=== PATIENT | female | born 1945 | race Caucasian/White ===

== ENCOUNTER 2019-05-10 10:04 | Emergency (ER) | payer MEDICARE | END 2019-05-10 11:16 | disposition home or self-care (01) | LOC: EDH 10:04 | DX: S43.492A Other sprain of left shoulder joint, initial encounter (principal); I10 Essential (primary) hypertension; E78.00 Pure hypercholesterolemia, unspecified; M81.0 Age-related osteoporosis without current pathological fracture; M19.90 Unspecified osteoarthritis, unspecified site; Z98.890 Other specified postprocedural states; X58.XXXA Exposure to other specified factors, initial encounter; Y93.89 Activity, other specified; Y92.098 Other place in other non-institutional residence as the place of occurrence of the external cause; Y99.8 Other external cause status | CPT/HCPCS: 73030 ==

== ENCOUNTER → 2021-07-01 | Outpatient (CLI) | payer MEDICARE | END | disposition home or self-care (01) | LOC: RAH 09:29 | PROVIDERS: ATTEND Internal Medicine Critical Care Medicine | DX: M47.27 Other spondylosis with radiculopathy, lumbosacral region (principal); M48.061 Spinal stenosis, lumbar region without neurogenic claudication; M41.86 Other forms of scoliosis, lumbar region | CPT/HCPCS: 72148 ==

== ENCOUNTER 2021-07-30 05:55 | Observation (INO) | payer MEDICARE ==
[2021-07-28 11:41] LABS: BASOPHILS % (AUTO) 0.4 % (0.0-5.0); EOSINOPHILS % (AUTO) 1.8 % (0.0-8.0); LYMPHOCYTES % (AUTO) 21.2 % (21.0-51.0); MEAN CORPUSCULAR HEMOGLOBIN 29.8 pg (27.0-33.0); MEAN CORPUSCULAR HGB CONC 33.6 g/dL (32.0-36.0); MEAN CORPUSCULAR VOLUME 88.8 fL (79-99); MONOCYTES % (AUTO) 8.8 % (3.0-13.0); NEUTROPHILS % (AUTO) 67.6 % (40.0-77.0); PLATELET COUNT (AUTO) 181 K/uL (130-400); RED BLOOD CELL COUNT(AUTO) 4.73 MIL/uL (4.00-5.50); RED CELL DISTRIBUTION WIDTH 12.7 % (11.0-15.5); WHITE BLOOD COUNT (AUTO) 5.1 K/uL (4.8-10.8)
[2021-07-28 11:51] LABS: CREATININE 0.5 mg/dL (0.5-1.5); POTASSIUM 4.7 mmol/L (3.5-5.1)
[2021-07-29 09:53] VITALS: BP 140/64
[~2021-07-30] VITALS: Ht 165.1 cm; Wt 103.2 kg
[2021-07-30] VITALS (29 sets, daily range): BP systolic 94–142; BP diastolic 46–133
[~2021-07-30 05:55] MED LIST: AEC81 PO; ASCO100031 PO; CALC-1125 PO; FLUO60TA PO; FURO40TA5 PO; GABA300C PO; LEVO88TA7 PO; METO25TA6 PO; OMEG-148 PO; POTA-193 PO; ROSU10TA28 PO; TUMERIC PO; VITA1CAP85 PO; VITA400C79 PO; VITAMIN D3 PO
[2021-07-30] MEDS ORDERED: CEFAZOLIN SODIUM 1 GM VIAL ONE ×2 (06:40→06:55)
[2021-07-30] MEDS ORDERED: THROMBIN-JMI 20000 UNIT KIT TP ONE (06:40)
[2021-07-30] MEDS ORDERED: BUPIVACAINE/EPI/PF 0.25% 30ML VIAL IJ ONE (06:40)
[2021-07-30] MEDS ORDERED: MORPHINE PF 100MG/10ML AMP IV ONE (06:40)
[2021-07-30] MEDS ORDERED: SUCCINYLCHOLINE CHLORIDE 20 MG/ML 10 ML VIAL ONE (06:44)
[2021-07-30] MEDS ORDERED: LIDOCAINE PF 100MG/5ML (2%) SYRINGE 5ML ONE (06:44)
[2021-07-30] MEDS ORDERED: DEXAMETHASONE SOD PHOSPHATE 10MG/ML 1ML VIAL ONE (06:44)
[2021-07-30] MEDS ORDERED: ONDANSETRON 4MG INJ ONE ×2 (06:45→07:39)
[2021-07-30] MEDS ORDERED: GLYCOPYRROLATE 1 MG/5 ML SYRINGE ONE (06:45)
[2021-07-30] MEDS ORDERED: NEOSTIGMINE 5MG/5ML SYR IV ONE (06:45)
[2021-07-30] MEDS ORDERED: MIDAZOLAM HCL 1 MG/ML 2ML VIAL ONE ×2 (06:45→07:29)
[2021-07-30] MEDS ORDERED: PROPOFOL 10 MG/ML 20ML VIAL IV ONE (06:45)
[2021-07-30] MEDS ORDERED: ROCURONIUM 10MG/1ML SYR 10 MG/ML ML ONE ×2 (06:45→08:42)
[2021-07-30] MEDS ORDERED: FENTANYL CITRATE PF 50 MCG/1 ML 2ML VIAL ONE ×2 (06:46→08:58)
[2021-07-30] MEDS ORDERED: LACTATED RINGERS 1000ML 1,000 ML IV ONE (06:55)
[2021-07-30] MEDS ORDERED: CEFAZOLIN SODIUM 1 GM VIAL IVP ONE (08:00)
[2021-07-30] MEDS ORDERED: ARTIFICIAL TEARS 3.5 GM OINTMENT ONE (08:26)
[2021-07-30] MEDS ORDERED: PHENYLEPHRINE HCL 10 MG/ML 1ML VIAL IV ONE (09:06)
[2021-07-30] MEDS ORDERED: ASCORBIC ACID 500 MG TAB PO SCH (11:21)
[2021-07-30] MEDS: DEXAMETHASONE SOD PHOSPHATE 4 MG/ML 1ML VIAL IVP SCH ×3 (11:30→23:07)
[2021-07-30] MEDS ORDERED: MORPHINE 2 MG SYG IVP PRN (11:30)
[2021-07-30] MEDS ORDERED: 0.9%NACL 10ML VIAL IVP PRN (11:30)
[2021-07-30] MEDS ORDERED: PROMETHAZINE HCL 25 MG/ML 1ML AMPULE IM PRN (11:30)
[2021-07-30] MEDS ORDERED: CEFAZOLIN SODIUM 1 GM VIAL IVP SCH (11:30)
[2021-07-30] MEDS ORDERED: ASPIRIN 81 MG EC TAB PO SCH (11:30)
[2021-07-30] MEDS: LACTATED RINGERS 1000ML 1,000 ML IV SCH ×2 (12:40→23:07)
[2021-07-30] MEDS: HYDROCODONE/ACETAMINOPHEN 5/325 MG TAB PO PRN ×2 (16:37→22:04)
[2021-07-30] MEDS ORDERED: BENZOCAINE/MENTH/CETYLPYRD CL 1 EACH LOZENGE MM PRN (17:30)
[2021-07-30] MEDS: METOPROLOL TARTRATE 25 MG TAB PO SCH (20:39)
[2021-07-30] MEDS: GABAPENTIN 300 MG CAPSULE PO SCH (20:40)
[2021-07-31 04:00] VITALS: BP 100/53
[2021-07-31] MEDS: DEXAMETHASONE SOD PHOSPHATE 4 MG/ML 1ML VIAL IVP SCH (06:00)
[2021-07-31] MEDS ORDERED: LEVOTHYROXINE 88 MCG TABLET PO SCH (06:30)
[2021-07-31 08:00] VITALS: BP 118/76
[2021-07-31] MEDS: GABAPENTIN 300 MG CAPSULE PO SCH (08:09)
[2021-07-31] MEDS: METOPROLOL TARTRATE 25 MG TAB PO SCH (08:09)
[2021-07-31] MEDS ORDERED: CA 600MG+VIT D 400 UNIT TAB 1 TAB TABLET PO SCH (09:00)
[2021-07-31] MEDS ORDERED: FLUOXETINE HCL 20 MG CAPSULE PO SCH (09:00)
[2021-07-31] MEDS ORDERED: FISH OIL 1000 MG/CAP PO SCH (09:00)
[2021-07-31] MEDS ORDERED: TUMERIC 1000 MG PO SCH (09:00)
[2021-07-31] MEDS ORDERED: ATORVASTATIN 10 MG TABLET PO SCH (09:00)
[2021-07-31] MEDS ORDERED: VITAMIN E 400 UNIT CAPSULE PO SCH (09:00)
[2021-07-31] MEDS ORDERED: FUROSEMIDE 40 MG TABLET PO SCH (09:00)
[2021-07-31] MEDS ORDERED: KCL 20 MEQ ERTAB PO SCH (09:00)
[2021-07-31] MEDS ORDERED: VITAMIN B COMPLEX 1 CAPSULE PO SCH (09:00)
[2021-07-31] MEDS ORDERED: VITAMIN D3 PO SCH (09:00)
[2021-07-31 12:03] VITALS: BP 132/70
== END 2021-07-31 13:00 | disposition home or self-care (01) ==
LOC: DAHIP 05:55 → EDSTATUS 07:30 → 3AH 12:48
PROVIDERS: ADMIT Neurological Surgery; ATTEND Neurological Surgery
DX: M48.061 Spinal stenosis, lumbar region without neurogenic claudication (principal); Z20.822 Contact with and (suspected) exposure to COVID-19; R53.1 Weakness; Z90.711 Acquired absence of uterus with remaining cervical stump; Z96.611 Presence of right artificial shoulder joint; Z96.612 Presence of left artificial shoulder joint; Z96.653 Presence of artificial knee joint, bilateral; Z79.899 Other long term (current) drug therapy; Z98.890 Other specified postprocedural states; Z98.41 Cataract extraction status, right eye; Z98.42 Cataract extraction status, left eye; Z90.710 Acquired absence of both cervix and uterus; Z79.82 Long term (current) use of aspirin
CPT/HCPCS: 36415; 63047; 63048 ×2; 71045; 72020; 80048; 85025; 87635; 96372; 96374; 96375; 96376; A4213; A4215; A4221; A4222; A4223; A4600; A4663; A6260; G0378 ×24; J0330; J0690 ×3; J1100 ×4; J2001; J2250 ×2; J2274; J2370; J2405 ×2; J2704; J2710; J3010 ×2; J3490 ×2; J7120 ×2